=== PATIENT | female | born 1970 | race Caucasian/White ===

== ENCOUNTER 2017-02-20 14:51 | Emergency (ER) | payer BC ==
[2017-02-20] MEDS ORDERED: Sodium Chloride 0.9% 10 ML Syringe FLUSH PRN (15:01)
[2017-02-20] MEDS ORDERED: Sodium Chloride 0.9% 2.5 ML Syringe FLUSH PRN (15:01)
--- NOTE | 2017-02-20 15:10 | EDM.PDOC ---
ED HPI GENERAL MEDICAL PROBLEM - General Chief Complaint: Chest Pain Stated Complaint: CHEST PAIN Time Seen by Provider: 02/20/17 14:52 - History of Present Illness INITIAL COMMENTS - FREE TEXT/NARRATIVE: HISTORY AND PHYSICAL: History of present illness: The patient is a 46-year-old female with a history of hypothyroidism hypercholesterolemia anxiety who follows with a provider in [place] and presents today with 2 concerns; the first is that she has had episodic left- sided chest pain which is stabbing like in nature and radiates and shoots down her arm and is associated with left arm heaviness and tingling. She says that this has been ongoing since 9 AM and she has had about 10 episodes of this which are very brief lasting only less than 1 minute. She does not have any associated shortness of breath diaphoresis nausea vomiting or any other symptomatology and she has no cardiac disease. The patient has no social history except occasional alcohol use and has no family history of cardiac disease. She is postmenopausal and went through the menopause naturally at or eat prematurely. The patient also states a second concern that happened earlier this afternoon a proximally one hour ago when she was at work and she had several episodes each lasting about 1 minute which she felt like her thoughts were confused and she had difficulty expressing herself and her threats verbally. She is not having that symptomatology now. She says that this is happened in the past when she has had migraine headaches but she currently does not have a headache. She was told many years ago that she had had a TIA but she doesn't recall circumstances around that the thought it was related to a migraine. The patient currently has no headache and chest pain and has no associated symptoms here. She does not feel she has trouble speaking but she does feel like her left arm feels oddly although she cannot quantitate it as she has normal strength and no gross sensation losses just that it doesn't feel quite right. The patient has a significant past medical history of Hodgkin's lymphoma which is in remission and for which she is currently under no treatment. Review of systems: As per history of present illness and below otherwise all systems reviewed and negative. Past medical history: As per history of present illness and as reviewed below otherwise noncontributory. Surgical history: As per history of present illness and as reviewed below otherwise noncontributory. Social history: No reported history of drug or alcohol abuse. Family history: As per history of present illness and as reviewed below otherwise noncontributory. Physical exam: Gen.: Well-developed well-nourished female who intubated the ED without assistance. Vital signs of been reviewed by me. HEENT: Atraumatic, normocephalic, pupils reactive, negative for conjunctival pallor or scleral icterus, mucous membranes moist, throat clear, neck supple, nontender, trachea midline. Is no cervical adenopathy or nuchal rigidity Lungs: Clear to auscultation, breath sounds equal bilaterally, chest nontender. Heart: S1S2, regular rate and rhythm no overt murmurs Abdomen: Soft, nondistended, nontender. Negative for masses or hepatosplenomegaly. NABS Pelvis: Stable nontender. Genitourinary: Deferred. Rectal: Deferred. Extremities: Atraumatic, negative for cords or calf pain. Neurovascular unremarkable. No pedal edema Neuro: Awake, alert, oriented. Cranial nerves II through XII unremarkable. Cerebellum unremarkable. Motor and sensory unremarkable throughout. Exam nonfocal. Is no drift any extremities the patient has good strength throughout 5 /5 and good dorsi and plantar flexion inclusive of the great toe 5/5. Sensation is grossly intact on my evaluation the patient is speaking clearly and easily and answer questions appropriately. Her gait was normal into the ED. Skin: There is no diaphoresis, there is normal turgor, there are no rashes or lesions seen overtly Diagnostics: CBC CMP INR TSH troponin EKG CT scan of the head chest x-ray NIHSS Therapeutics: IV O2 monitor aspirin if CT is negative Nihss=0 Please note that I was informed by nursing that the patient wanted to leave the ER and I had just recently gotten her CAT scan results back. I discussed all testing results with her and despite my recommendation for observation admission for cardiac rule out as well as neurochecks the patient is deferring admission at this time and wants to go home. She is aware of all the risks involved and my concerns and accepts those. She is awake alert and oriented and competent to make this decision. She is aware that I'm advising her to take a 325 mg aspirin every day until she follows up and that she needs to follow-up in the clinic. Impression: Episodic chest pain etiology unclear rule out ACS, episode of speech issues etiology unclear, patient refusing admission Definitive disposition and diagnosis as appropriate pending reevaluation and review of above. Chest Pain Score (Numeric/FACES): 2 - Related Data Allergies Allergy/AdvReac Type Severity Reaction Status Date / Time No Known Allergies Allergy Verified 02/20/17 14:59 Home Meds: Home Meds Citalopram Hydrobromide [Celexa] 40 mg PO DAILY 02/17/15 [History] Simvastatin [Zocor] 20 mg PO DAILY 02/17/15 [History] Solifenacin [Vesicare] 5 mg PO DAILY 02/17/15 [History] Thyroid [[place] Thyroid] 180 mg PO DAILY 02/17/15 [History] Venlafaxine [Effexor XR] 37.5 mg PO DAILY 02/17/15 [History] Past Medical History Other Gastrointestinal History: occasional heartburn Social & Family History - Tobacco Use Smoking Status *Q: Never Smoker - Recreational Drug Use Recreational Drug Use: No ED ROS GENERAL - Review of Systems Review Of Systems: ROS reveals no pertinent complaints other than HPI. ED EXAM, GENERAL - Physical Exam Exam: See Below (See dictation) Course - Vital Signs Last Recorded V/S: Last Vital Signs Temp 36.6 C 02/20/17 15:06 Pulse 88 02/20/17 16:25 Resp 14 02/20/17 16:25 BP 118/74 02/20/17 16:25 Pulse Ox 99 02/20/17 16:25 - Orders/Labs/Meds Orders: Active Orders 24 hr Category Date Time Status Cardiac Monitoring [RC] . DIRECTED Care 02/20/17 15:01 Active Communication Order [RC] STAT Care 02/20/17 15:10 Active EKG 12 Lead [EKG Documentation Completion] [RC] STAT Care 02/20/17 14:58 Active Oxygen Therapy, ED [RC] ASDIRECTED Care 02/20/17 15:01 Active Pulse Oximetry [RC] ASDIRECTED Care 02/20/17 15:01 Active Sodium Chloride 0.9% [Saline Flush] Med 02/20/17 15:01 Active 10 ml FLUSH ASDIRECTED PRN Sodium Chloride 0.9% [Saline Flush] Med 02/20/17 15:01 Active 2.5 ml FLUSH ASDIRECTED PRN Saline Lock Insert [OM.PC] Stat Oth 02/20/17 15:01 Ordered Medication Orders Sodium Chloride (Saline Flush) 10 ml FLUSH ASDIRECTED PRN PRN Reason: Keep Vein Open Last Admin: 02/20/17 15:19 Dose: 10 ml Sodium Chloride (Saline Flush) 2.5 ml FLUSH ASDIRECTED PRN PRN Reason: Keep Vein Open Last Admin: 02/20/17 15:19 Dose: 2.5 ml Labs: Laboratory Tests 02/20/17 02/20/17 02/20/17 Range/Units 14:53 14:53 14:53 WBC 7.36 (4.0-11.0) K/uL RBC 4.38 (4.30-5.90) M/uL Hgb 13.1 (12.0-16.0) g/dL Hct 39.3 (36.0-46.0) % MCV 89.7 (80.0-98.0) fL MCH 29.9 (27.0-32.0) pg MCHC 33.3 (31.0-37.0) g/dL RDW Std Deviation 42.6 (28.0-62.0) fl RDW Coeff of Adina 13 (11.0-15.0) % Plt Count 273 (150-400) K/uL MPV 9.60 (7.40-12.00) fL Neut % (Auto) 52.2 (48.0-80.0) % Lymph % (Auto) 30.4 (16.0-40.0) % Forrest % (Auto) 13.2 (0.0-15.0) % Eos % (Auto) 3.4 (0.0-7.0) % Baso % (Auto) 0.8 (0.0-1.5) % Neut # (Auto) 3.8 (1.4-5.7) K/uL Lymph # (Auto) 2.2 (0.6-2.4) K/uL Forrest # (Auto) 1.0 H (0.0-0.8) K/uL Eos # (Auto) 0.3 (0.0-0.7) K/uL Baso # (Auto) 0.1 (0.0-0.1) K/uL Nucleated RBC % 0.0 /100WBC Nucleated RBCs # 0 K/uL INR 1.00 (0.86-1.11) Sodium 138 (136-146) mmol/L Potassium 3.7 (3.5-5.1) mmol/L Chloride 103 (98-110) mmol/L Carbon Dioxide 26 (21-31) mmol/L BUN 18 (6.0-23.0) mg/dL Creatinine 0.8 (0.6-1.5) mg/dL Est Cr Clr Drug Dosing 84.54 mL/min Estimated GFR (MDRD) > 60.0 ml/min Glucose 90 (60-110) mg/dL Calcium 9.6 (8.8-10.8) mg/dL Total Bilirubin 0.4 (0.1-1.5) mg/dL AST 24 (5-40) IU/L ALT 23 (8-54) IU/L Alkaline Phosphatase 83 (40-150) Troponin I (0.0-0.29) NG/ML Total Protein 8.0 (6.0-8.0) g/dL Albumin 4.3 (3.5-5.0) g/dL Globulin 3.7 H (2.0-3.5) g/dL Albumin/Globulin Ratio 1.2 L (1.3-2.8) TSH 3rd Generation 0.56 (0.47-5.0) uIU/mL 02/20/17 Range/Units 14:53 WBC (4.0-11.0) K/uL RBC (4.30-5.90) M/uL Hgb (12.0-16.0) g/dL Hct (36.0-46.0) % MCV (80.0-98.0) fL MCH (27.0-32.0) pg MCHC (31.0-37.0) g/dL RDW Std Deviation (28.0-62.0) fl RDW Coeff of Adina (11.0-15.0) % Plt Count (150-400) K/uL MPV (7.40-12.00) fL Neut % (Auto) (48.0-80.0) % Lymph % (Auto) (16.0-40.0) % Forrest % (Auto) (0.0-15.0) % Eos % (Auto) (0.0-7.0) % Baso % (Auto) (0.0-1.5) % Neut # (Auto) (1.4-5.7) K/uL Lymph # (Auto) (0.6-2.4) K/uL Forrest # (Auto) (0.0-0.8) K/uL Eos # (Auto) (0.0-0.7) K/uL Baso # (Auto) (0.0-0.1) K/uL Nucleated RBC % /100WBC Nucleated RBCs # K/uL INR (0.86-1.11) Sodium (136-146) mmol/L Potassium (3.5-5.1) mmol/L Chloride (98-110) mmol/L Carbon Dioxide (21-31) mmol/L BUN (6.0-23.0) mg/dL Creatinine (0.6-1.5) mg/dL Est Cr Clr Drug Dosing mL/min Estimated GFR (MDRD) ml/min Glucose (60-110) mg/dL Calcium (8.8-10.8) mg/dL Total Bilirubin (0.1-1.5) mg/dL AST (5-40) IU/L ALT (8-54) IU/L Alkaline Phosphatase (40-150) Troponin I < 0.10 (0.0-0.29) NG/ML Total Protein (6.0-8.0) g/dL Albumin (3.5-5.0) g/dL Globulin (2.0-3.5) g/dL Albumin/Globulin Ratio (1.3-2.8) TSH 3rd Generation (0.47-5.0) uIU/mL Meds: Medications Generic Name Dose Route Start Last Admin Trade Name Freq PRN Reason Stop Dose Admin Sodium Chloride 10 ml 02/20/17 15:02/20/17 15:19 Saline Flush FLUSH 10 ml ASDIRECTED PRN Administration Keep Vein Open Sodium Chloride 2.5 ml 02/20/17 15:01 02/20/17 15:19 Saline Flush FLUSH 2.5 ml ASDIRECTED PRN Administration Keep Vein Open Departure - Departure Time of Disposition: 16:31 Disposition: Home, Self-Care 01 Condition: Good Clinical Impression: Chest pain Qualifiers: Chest pain type: unspecified Qualified Code(s): R07.9 - Chest pain, unspecified - Discharge Information Referrals: PCP,None [Primary Care Provider] - Forms: ED Department Discharge Additional Instructions: The following information is given to patients seen in the emergency department who are being discharged to home. This information is to outline your options for follow-up care. We provide all patients seen in our emergency department with a follow-up referral. The need for follow-up, as well as the timing and circumstances, are variable depending upon the specifics of your emergency department visit. If you don't have a primary care physician on staff, we will provide you with a referral. We always advise you to contact your personal physician following an emergency department visit to inform them of the circumstance of the visit and for follow-up with them and/or the need for any referrals to a consulting specialist. The emergency department will also refer you to a specialist when appropriate. This referral assures that you have the opportunity for followup care with a specialist. All of these measure are taken in an effort to provide you with optimal care, which includes your followup. Under all circumstances we always encourage you to contact your private physician who remains a resource for coordinating your care. When calling for followup care, please make the office aware that this follow-up is from your recent emergency room visit. If for any reason you are refused follow-up, please contact the [facility] emergency department at and ask to speak to the emergency department charge nurse. [facility] Primary care- Internal Medicine and Family [address] [address] Please contact your provider for further care and evaluation as we discussed and or contact one of our providers for follow-up in the clinic. Please return to ER as needed and as discussed. Please take a 325 mg enteric-coated aspirin every day until you're followed up by we are provider. - My Orders Last 24 Hours: My Active Orders 02/20/17 14:58 EKG 12 Lead [EKG Documentation Completion] [RC] STAT 02/20/17 15:01 Cardiac Monitoring [RC] . DIRECTED Oxygen Therapy, ED [RC] ASDIRECTED Pulse Oximetry [RC] ASDIRECTED Sodium Chloride 0.9% [Saline Flush] 10 ml FLUSH ASDIRECTED PRN Sodium Chloride 0.9% [Saline Flush] 2.5 ml FLUSH ASDIRECTED PRN Saline Lock Insert [OM.PC] Stat 02/20/17 15:10 Communication Order [RC] STAT - Assessment/Plan Last 24 Hours: My Active Orders 02/20/17 14:58 EKG 12 Lead [EKG Documentation Completion] [RC] STAT 02/20/17 15:01 Cardiac Monitoring [RC] . DIRECTED Oxygen Therapy, ED [RC] ASDIRECTED Pulse Oximetry [RC] ASDIRECTED Sodium Chloride 0.9% [Saline Flush] 10 ml FLUSH ASDIRECTED PRN Sodium Chloride 0.9% [Saline Flush] 2.5 ml FLUSH ASDIRECTED PRN Saline Lock Insert [OM.PC] Stat 02/20/17 15:10 Communication Order [RC] STAT
[2017-02-20 15:29] LABS: CHLORIDE,CL 103 mmol/L (98-110); SODIUM,NA 138 mmol/L (136-146)
--- NOTE | 2017-02-20 15:38 | CR ---
EXAMINATION: Portable chest radiograph. HISTORY: Shortness of breath. FINDINGS: The trachea is midline. The cardiomediastinal silhouette is within normal limits. No pulmonary infilt rates, effusions or pneumothorax. Left basilar atelectasis/tenting. Osseous structures appear unremarkable. IMPRESSION: No acute cardiopulmonary process.
--- NOTE | 2017-02-20 16:19 | CT ---
EXAMINATION: Non contrast CT head. Coronal and sagittal reformats. HISTORY: Pain FINDINGS: No evidence of intra or extra axial hemorrhage, mass, midline shift, hydrocephalus or edema. No hypoattenuation changes in the major vascular territories to suggest acute infarct. No abnormal intracranial calcifications are detected. No evidence of substantial vascular calcificat ions. Paranasal sinuses and mastoid air cells are well aerated without substantial findings. Pituitary fossa appears unremarkable. Orbits and globes are symmetric. Calvarium is intact. No evidence of skull fracture. IMPRESSION: No acute intracranial findings.
[2017-02-20 16:26] VITALS: BP 118/74
== END 2017-02-20 16:38 | disposition home or self-care (01) ==
LOC: MW.ED 14:51
DX: R07.9 Chest pain, unspecified (principal); E03.9 Hypothyroidism, unspecified; E78.00 Pure hypercholesterolemia, unspecified; Z85.72 Personal history of non-Hodgkin lymphomas; Z79.899 Other long term (current) drug therapy
CPT/HCPCS: 36415; 70450; 70450-26; 71010; 71010-26; 80053; 84443; 84484; 85025; 85610; 93005; 99283; 99285-25

== ENCOUNTER 2017-11-25 08:05 | Day surgery (SDC) | payer BC ==
[~2017-11-25 08:05] MED LIST: Lactated Ringers 1,000 ML IV SCH; Midazolam 1 MG/ML 2 ML SDV ONE; Propofol 200 MG/20 ML SDV ONE; fentaNYL 100 MCG/2 ML SDV ONE
--- NOTE | 2017-11-25 08:50 | PCM.PREANE ---
Preanesthetic Assessment - Anesthesia/Transfusion/Family Hx Anesthesia History: Prior Anesthesia Without Reaction Family History of Anesthesia Reaction: No Transfusion History: No Prior Transfusion(s) - Review of Systems General: No Symptoms Pulmonary: No Symptoms Cardiovascular: No Symptoms Gastrointestinal: No Symptoms Neurological: No Symptoms Other: Reports: None - Physical Assessment NPO Status Date: 11/23/17 NPO Status Time: 22:00 O2 Sat by Pulse Oximetry: 98 Respiratory Rate: 16 Vital Signs: Last Vital Signs Temp 36.6 C 11/25/17 08:15 Pulse 85 11/25/17 08:15 Resp 16 11/25/17 08:15 BP 122/69 11/25/17 08:15 Pulse Ox 98 11/25/17 08:15 Height: 1.7 m Weight: 86.183 kg ASA Class: 2 Mental Status: Alert & Oriented x3 Airway Class: Mallampati = 1 Dentition: Reports: Normal Dentition Lungs: Clear to Auscultation, Normal Respiratory Effort Cardiovascular: Regular Rate, Regular Rhythm - Allergies Allergies/Adverse Reactions: Allergies Allergy/AdvReac Type Severity Reaction Status Date / Time No Known Allergies Allergy Verified 11/20/17 10:20 - Anesthesia Plan Pre-Op Medication Ordered: None - Acknowledgements Anesthesia Type Planned: General Anesthesia Pt an Appropriate Candidate for the Planned Anesthesia: Yes Alternatives and Risks of Anesthesia Discussed w Pt/Guardian: Yes Pt/Guardian Understands and Agrees with Anesthesia Plan: Yes Additional Comments: PMH: hx of migraine, thyroid replacement, hld, hx of TIA, PreAnesthesia Questionnaire HEENT History: Reports: Other (See Below) Other HEENT History: wears glasses Cardiovascular History: Reports: High Cholesterol Gastrointestinal History: Reports: None Other Gastrointestinal History: occasional heartburn Genitourinary History: Reports: None 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: Other OB/BYN History: 1 Vaginal Delivery, 2 deliveries Neurological History: Reports: Migraines, Other (See Below) Other Neuro History: hx cerebral infarct Psychiatric History: Reports: Anxiety, Depression Endocrine/Metabolic History: Reports: Hypothyroidism, Other (See Below) Other Endocrine/Metabolic History: hx thyroid bx Oncologic (Cancer) History: Reports: Non-Hodgkin's Lymphoma Other Oncologic History: non hodgkin's lymphoma with chemo and radiation - Past Surgical History Head Surgeries/Procedures: Reports: None GI Surgical History: Reports: Colonoscopy Female Surgical History: Reports: Section - SUBSTANCE USE Smoking Status *Q: Never Smoker Recreational Drug Use History: No - HOME MEDS Home Medications: Home Meds Citalopram Hydrobromide [Celexa] 40 mg PO DAILY 02/17/15 [History] Simvastatin [Zocor] 20 mg PO DAILY 02/17/15 [History] Thyroid [[place] Thyroid] 120 mg PO DAILY 02/17/15 [History] Venlafaxine [Effexor XR] 37.5 mg PO DAILY 02/17/15 [History] Cholecalciferol (Vitamin D3) [Vitamin D3] 1,000 units PO DAILY 11/20/17 [History ] Fish Oil/[place]-3 Fatty Acids [Fish Oil 1,000 MG] 1,000 mg PO DAILY 11/20/17 [ History] Magnesium Oxide [Magnesium] 400 mg PO DAILY 11/20/17 [History] - CURRENT (IN HOUSE) MEDS Current Meds: Current Medications Lactated Ringer's (Ringers, Lactated) 1,000 mls @ 125 mls/hr IV ASDIRECTED THELMA Discontinued Medications Fentanyl (Sublimaze) Confirm Administered Dose 100 mcg .ROUTE .STK-MED ONE Stop: 11/25/17 07:45 Midazolam HCl (Versed 1 Mg/Ml) Confirm Administered Dose 2 mg .ROUTE .STK-MED ONE Stop: 11/25/17 07:44 Propofol (Diprivan 20 Ml) Confirm Administered Dose 200 mg .ROUTE .STK-MED ONE Stop: 11/25/17 07:44
[2017-11-25] MEDS ORDERED: Propofol 200 MG/20 ML SDV ONE ×2 (09:45→09:46)
--- NOTE | 2017-11-25 09:59 | PCM.OPNOTE ---
- General Post-Op/Procedure Note Date of Surgery/Procedure: 11/25/17 Operative Procedure(s): Colonoscopy with cold sigmoid colon polypectomy Pre Op Diagnosis: Rectal bleeding. Maternal family history of colon cancer ( maternal aunt) Post-Op Diagnosis: Sigmoid polyp. Mild sigmoid diverticulosis Anesthesia Technique: MAC (ASA II) Primary Surgeon: Pedro Alfaro Condition: Good Free Text/Narrative:: DICTATION [id number] CPT CODE [id number]
[2017-11-25] MEDS ORDERED: Lactated Ringers 1,000 ML IV SCH (10:00)
[2017-11-25] MEDS ORDERED: Lidocaine 2% 5 ML SDV ONE (11:03)
--- NOTE | 2017-11-25 11:15 | PCM48HPAN ---
Post Anesthesia Note - EVALUATION WITHIN 48HRS OF ANESTHETIC Vital Signs in Normal Range: Yes Patient Participated in Evaluation: Yes Respiratory Function Stable: Yes Airway Patent: Yes Cardiovascular Function Stable: Yes Hydration Status Stable: Yes Pain Control Satisfactory: Yes Nausea and Vomiting Control Satisfactory: Yes Mental Status Recovered: Yes Resp Rate: 13 - COMMENTS/OBSERVATIONS Free Text/Narrative:: no anesthesia problems
[2017-11-25 11:27] VITALS: BP 110/60
--- NOTE | 2017-11-26 10:03 | OR ---
SURGEON: Pedro Alfaro M.D. DATE OF PROCEDURE: 11/25/2017 OPERATION PERFORMED: Colonoscopy with cold sigmoid colon polypectomy. ANESTHESIA: MAC. ASA CLASSIFICATION: II. PREOPERATIVE DIAGNOSES: 1. Rectal bleeding. 2. Family history of colon cancer, maternal aunt. POSTOPERATIVE DIAGNOSES: 1. Sigmoid polyp. 2. Mild sigmoid diverticulosis. DESCRIPTION OF PROCEDURE: The patient was taken to the endoscopy room, positioned on the endoscopy table in left lateral decubitus position. Time-out was called for appropriate identification of the patient and procedure. Monitored anesthesia care was provided. The colonoscope was inserted into the rectum and advanced with minimal difficulty to the cecum where the colonoscope was retroflexed to visualize the ascending colon from below. The colonoscope was then straightened and slowly withdrawn. The cecum, ascending colon, hepatic flexure, transverse colon, splenic flexure, and descending colon showed no tumors, polyps, diverticula, angiodysplasia, or evidence of inflammatory bowel disease. One polyp was encountered in the sigmoid colon and removed with the cold biopsy forceps. Mild sigmoid diverticular changes were noted. The colonoscope was withdrawn to the rectum and retroflexed to visualize the anal orifice from above. No tumors, polyps, or acute hemorrhoidal changes were noted. The colonoscope was then straightened, the rectum aspirated, and the colonoscope removed. The patient tolerated the procedure well and was taken to recovery room in stable condition. OFELIA PIERRE /[id number]
== END 2017-11-25 10:25 | disposition home or self-care (01) ==
LOC: MW.SDS 08:05
PROVIDERS: ATTEND Surgery
DX: K62.5 Hemorrhage of anus and rectum (principal); D12.5 Benign neoplasm of sigmoid colon; K57.30 Diverticulosis of large intestine without perforation or abscess without bleeding; E78.00 Pure hypercholesterolemia, unspecified; F32.9 Major depressive disorder, single episode, unspecified; Z79.899 Other long term (current) drug therapy; Z86.73 Personal history of transient ischemic attack (TIA), and cerebral infarction without residual deficits; Z83.71 Family history of colonic polyps
CPT/HCPCS: 45380; J2250; J3010; J7120; 88305; J2704

== ENCOUNTER 2021-02-27 09:30 | Day surgery (SDC) | payer BC ==
[~2021-02-27 09:30] MED LIST changes: -Midazolam 1 MG/ML 2 ML SDV ONE; -Propofol 200 MG/20 ML SDV ONE; -fentaNYL 100 MCG/2 ML SDV ONE
--- NOTE | 2021-02-27 09:42 | PCM.PREANE ---
Preanesthetic Assessment - Procedure Proposed Procedure: Colonoscopy - Anesthesia/Transfusion/Family Hx Anesthesia History: Prior Anesthesia Without Reaction Transfusion History: No Prior Transfusion(s) - Review of Systems General: No Symptoms Pulmonary: No Symptoms (PAULA, Uses CPAP) Cardiovascular: No Symptoms (HLD) Gastrointestinal: No Symptoms (H/O Polyps, Diverticulosis) Neurological: No Symptoms, Confusion, Headache (Migraines) Other: Reports: None (Hypothyroid) - Physical Assessment NPO Status Date: 02/25/21 NPO Status Time: 19:30 Height: 5 ft 6 in Weight: 79.832 kg ASA Class: 2 Mental Status: Alert & Oriented x3 Airway Class: Mallampati = 3 Dentition: Reports: Normal Dentition Thyro-Mental Finger Breadths: 3 Mouth Opening Finger Breadths: 3 ROM/Head Extension: Full Lungs: Clear to Auscultation, Normal Respiratory Effort Cardiovascular: Regular Rate, Regular Rhythm - Allergies Allergies/Adverse Reactions: Allergies Allergy/AdvReac Type Severity Reaction Status Date / Time No Known Allergies Allergy Verified 02/21/21 13:35 - Acknowledgements Anesthesia Type Planned: General Anesthesia Pt an Appropriate Candidate for the Planned Anesthesia: Yes Alternatives and Risks of Anesthesia Discussed w Pt/Guardian: Yes Pt/Guardian Understands and Agrees with Anesthesia Plan: Yes PreAnesthesia Questionnaire HEENT History: Reports: Other (See Below) Other HEENT History: wears glasses Cardiovascular History: Reports: High Cholesterol Respiratory History: Reports: Sleep Apnea Other Respiratory History: uses CPAP Gastrointestinal History: Reports: Colon Polyp, Diverticulosis Genitourinary History: Reports: None 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: Other OB/BYN History: 1 Vaginal Delivery, 2 deliveries Musculoskeletal History: Reports: None Neurological History: Reports: Migraines, Other (See Below) Other Neuro History: H&P states cerebral infarct but pt denies states she feels it was result of a migraine Psychiatric History: Reports: Anxiety, Depression Endocrine/Metabolic History: Reports: Hypothyroidism, Other (See Below) Other Endocrine/Metabolic History: hx thyroid bx Hematologic History: Reports: None Immunologic History: Reports: None Oncologic (Cancer) History: Reports: Basal Cell Carcinoma, Non-Hodgkin's Lymphoma Other Oncologic History: non hodgkin's lymphoma with chemo and radiation Dermatologic History: Reports: None - Past Surgical History Head Surgeries/Procedures: Reports: None HEENT Surgical History: Reports: None Cardiovascular Surgical History: Reports: None Respiratory Surgical History: Reports: None GI Surgical History: Reports: Colonoscopy Female Surgical History: Reports: Section Endocrine Surgical History: Reports: None Neurological Surgical History: Reports: None Musculoskeletal Surgical History: Reports: None Oncologic Surgical History: Reports: None Dermatological Surgical History: Reports: Skin Biopsy - SUBSTANCE USE Tobacco Use Status *Q: Never Tobacco User Recreational Drug Use History: No - HOME MEDS Home Medications: Home Meds Citalopram Hydrobromide [Celexa] 40 mg PO DAILY 02/17/15 [History] Simvastatin [Zocor] 20 mg PO DAILY 02/17/15 [History] Thyroid [[place] Thyroid] 120 mg PO DAILY 02/17/15 [History] Venlafaxine [Effexor XR] 37.5 mg PO DAILY 02/17/15 [History] Cholecalciferol (Vitamin D3) [Vitamin D3] 1,000 units PO DAILY 11/20/17 [History] Fish Oil/[place]-3 Fatty Acids [Fish Oil 1,000 MG] 1,000 mg PO DAILY 11/20/17 [History] Magnesium Oxide [Magnesium] 400 mg PO DAILY 11/20/17 [History] - CURRENT (IN HOUSE) MEDS Current Meds: Current Medications Lactated Ringer's (Ringers, Lactated) 1,000 mls @ 125 mls/hr IV ASDIRECTED THELMA
[2021-02-27] MEDS ORDERED: Propofol 200 MG/20 ML SDV ONE ×2 (09:53→10:50)
[2021-02-27] MEDS ORDERED: fentaNYL 100 MCG/2 ML SDV ONE (10:50)
--- NOTE | 2021-02-27 11:35 | PCM.OPNOTE ---
- General Post-Op/Procedure Note Date of Surgery/Procedure: 02/27/21 Operative Procedure(s): Colonoscopy Pre Op Diagnosis: Personal history of colon polyps Post-Op Diagnosis: No evidence of neoplasia Anesthesia Technique: MAC (ASA II) Primary Surgeon: Pedro Alfaro Town Clerk: Bhumika Ayala Condition: Good Free Text/Narrative:: DICTATION [id number] CPT CODE [id number]
[2021-02-27] MEDS ORDERED: Lactated Ringers 1,000 ML IV SCH (11:45)
--- NOTE | 2021-02-27 11:48 | PCM.POSTAN ---
POST ANESTHESIA ASSESSMENT - MENTAL STATUS Mental Status: Alert, Oriented - VITAL SIGNS Vital Signs: Last Vital Signs Temp 97.2 F 02/27/21 11:33 Pulse 78 02/27/21 11:43 Resp 15 02/27/21 11:43 BP 87/55 L 02/27/21 11:43 Pulse Ox 96 02/27/21 11:43 - RESPIRATORY Respiratory Status: Respiratory Rate WNL, Airway Patent, O2 Saturation Stable - CARDIOVASCULAR CV Status: Pulse Rate WNL, Blood Pressure Stable - GASTROINTESTINAL GI Status: No Symptoms - PAIN Pain Score: 0 - POST OP HYDRATION Hydration Status: Adequate & Stable
--- NOTE | 2021-02-27 11:50 | PCM48HPAN ---
Post Anesthesia Note - EVALUATION WITHIN 48HRS OF ANESTHETIC Vital Signs in Normal Range: Yes Patient Participated in Evaluation: Yes Respiratory Function Stable: Yes Airway Patent: Yes Cardiovascular Function Stable: Yes Hydration Status Stable: Yes Pain Control Satisfactory: Yes Nausea and Vomiting Control Satisfactory: Yes Mental Status Recovered: Yes Vital Signs: Last Vital Signs Temp 97.2 F 02/27/21 11:33 Pulse 82 02/27/21 11:48 Resp 14 02/27/21 11:48 BP 87/56 L 02/27/21 11:48 Pulse Ox 95 02/27/21 11:48 - COMMENTS/OBSERVATIONS Free Text/Narrative:: Pt doing well post-op, VSS. No apparent anesthetic complications. Dr. Rey Saunders
[2021-02-27 12:00] VITALS: BP 101/62; PULSE 80
--- NOTE | 2021-02-27 16:26 | OR ---
SURGEON: Pedro Alfaro M.D. DATE OF PROCEDURE: 02/27/2021 OPERATION PERFORMED: Colonoscopy. PRIMARY SURGEON: Pedro Alfaro M.D. OCCUPATIONAL HEALTH TECHNICIAN: Embedded Software Development Engineer: Bhumika Ayala nurse practitioner student. ANESTHESIA: MAC. ASA CLASSIFICATION: II. PREOPERATIVE DIAGNOSIS: Personal history of colon polyps. POSTOPERATIVE DIAGNOSIS: No evidence of neoplasia. DESCRIPTION OF PROCEDURE: The patient was taken to the endoscopy room and positioned on the endoscopy table in the left lateral decubitus position. Time-out was called for appropriate identification of the patient and procedure. Monitored anesthesia care was provided. The colonoscope was inserted into the rectum and advanced with minimal difficulty to the cecum. The cecum was identified by internal landmarks and external pressure. The colonoscope was retroflexed to visualize the ascending colon from below, then straightened and slowly withdrawn. The cecum, ascending colon, hepatic flexure, transverse colon, splenic flexure, descending colon, sigmoid colon, and rectum were very well visualized. No tumors, polyps, diverticula, or angiodysplastic changes were noted anywhere throughout the lower gastrointestinal tract. Once the colonoscope was withdrawn to the rectum, it was retroflexed to visualize the anal orifice from above. Again, no tumors or polyps were seen and there were no acute hemorrhoidal changes. The colonoscope was then straightened, the rectum aspirated, and the colonoscope removed. The patient tolerated the procedure well and was taken to recovery room in stable condition. OFELIA / IGNACIO /[id number]
== END 2021-02-27 12:10 | disposition home or self-care (01) ==
LOC: MW.SDS 09:30
PROVIDERS: ATTEND Surgery
DX: Z12.11 Encounter for screening for malignant neoplasm of colon (principal); E78.00 Pure hypercholesterolemia, unspecified; G43.909 Migraine, unspecified, not intractable, without status migrainosus; F32.9 Major depressive disorder, single episode, unspecified; E03.9 Hypothyroidism, unspecified; Z79.899 Other long term (current) drug therapy; Z86.010 Personal history of colon polyps
CPT/HCPCS: 45378; J2704; J3010; J7120; 00811